=== PATIENT | female | born 1945 | race Caucasian/White ===

== ENCOUNTER 2017-01-10 10:42 | Day surgery (SDC) | payer MEDICARE, OTHER ==
[~2017-01-10] VITALS: Ht 167.6 cm; Wt 87.8 kg
[~2017-01-10 10:42] MED LIST: ASPI-973 PO; CeFAZolin Inj 2 GM in IV Premix 1 EACH IV ONE; Dexamethasone 4 mg/mL Inj IVPUSH PRN; EPHEDrine Sulfate 50 mg/mL Inj IVPUSH PRN; HYDROmorphone 1 mg/mL Inj IVPUSH PRN; LISI-567 PO; LOVA20TA PO; Labetalol 5 mg/mL 20 mL Inj IV PRN; Lactated Ringer's 1,000 ML IV SCH; Lactated Ringer's 500 ML IV PRN; METF500T4 PO; MetoCLOpramide 5 mg/mL 2 mL Inj IVPUSH PRN; Ondansetron 2 mg/mL 2 mL Inj IVPUSH PRN; Phenylephrine 10,000 mCg/mL Inj IVPUSH PRN; fentaNYL-PF 50 mCg/mL 2 mL Inj IVPUSH PRN; hydrALAZINE 20 mg/mL Inj IVPUSH PRN
[2017-01-10] MEDS ORDERED: Propofol 10,000 mCg/mL 20 mL Inj ONE (10:43)
[2017-01-10] MEDS ORDERED: Ketamine 10 mg/mL 20 mL Inj ONE (10:43)
[2017-01-10 11:02] VITALS: BP 139/61; PULSE 78; RESP 16; O2SAT 96
[2017-01-10] MEDS ORDERED: CeFAZolin Inj 2 gm / 50mL D5W IV ONE (11:06)
[2017-01-10] MEDS ORDERED: Lactated Ringer's 1,000 ML IV ONE (11:29)
--- NOTE | 2017-01-10 12:46 | PCM.HPANE ---
Patient Data Date of Service: Jan 10, 2017 Surgeon Admitting Provider: Attending Provider:Jb Thornotn MD Primary Care Physician:Olvin Raines MD Other Provider:Sue Amos Anesthesia Reason for Visit Right Index Finger Mass, Likely Ganglion Cyst Ht/WT & BMI Height (Feet): 5 Height (Inches): 6.00 Weight (Kilograms): 87.800 Body Mass Index 31.00 Allergies Coded Allergies: No Known Allergies (Unverified , 01/03/17) Past Anesthesia History Anesthesia History: Denies:: Abnormal Airway, Anesthesia Reactions, Difficult Intubation, Fam Anesthesia Reaction, Fam Malignant Hypertherm, Malignant Hyperthermia Diabetes History Hx Diabetes?: Yes (TYPE II) Type of Diabetes: Type II Glycemic Control: Oral Medication Current Bedside Blood Glucose: 127 MRSA MRSA: No Medications Blood Thinner: Aspirin Last Dose Blood Thinner: Jan 05, 2017 Hypertension Medication: Yes (Lisinopril) Home Meds Incl Beta Bertha: No Reported Medications Metformin 500 Mg [id number] Mg PO BID Ref 0 01/03/17 Lovastatin 20 Mg [id number] Mg PO HS PRN For HYPERtension #30 TABLET Ref 0 01/03/17 Lisinopril 20 Mg [id number] Mg PO DAILY 30 Days Ref 0 01/03/17 Aspirin 81 Mg [id number] Mg PO DAILY Ref 0 01/03/17 Discontinued Reported Medications [lidocaine viscus] No Conflict Check5 Ml QID 01/03/17 Fluticasone Propionate 50 Mcg/Actuation Harris.susp15.8 Ml NS DAILY 01/03/17 History History of ENT Problems?: No HEENT History: Positive for:: Hearing Problem Denies:: Abnormal Airway Difficult Intubation Dysphagia Sinus Problem TMJ Denture Type: Full- Upper Partial- Lower Teeth Condition: Within Normal Limits Hx of Heart Problems?: No Cardiovascular History: Positive for:: Hypertension Denies:: Abdominal Aortic Aneurism Atrial Fibrillation Cardiac Surgery Chest Pain Congestive Heart Failure Coronary Artery Disease Edema Heart Murmur Irregular Heartbeat Pacemaker Rheumatic Fever Valvular Heart Disease Hx of Respiratory Problem?: No Respiratory History: Denies:: Tuberculosis Use of C-PAP Machine Use of Inhalers / NEBS Hx Neurologic Problems?: No Neurological History: Denies:: Alzheimer's Disease CVA Dementia Dizziness Headaches Parkinson's Disease Seizures TIA Hx of GI Problems?: No Hx of Problems?: No Genitourinary History: Denies:: HX of Hemodialysis Kidney Stones Urinary Tract Infection HX of Peritoneal Dialysis: No Female Hx: Denies:: Problems with Breasts? Skin History: Denies:: History Skin Disorders? Pressure Ulcers Hx Musculoskeletal Problems?: Yes Musculoskeletal History: Positive for:: Back Injury (spinal stenosis ) Musculoskeletal Trauma (fx feet 2nd to stepping from porch) Denies:: Degenerative Joint Joint Replacement Osteoarthritis Rheumatoid Arthritis Systemic Lupus Hx of Psycho/Social Problems?: No Psycho Social History: Denies:: Anxiety Hx Depression Hx Surgeries?: Yes (R ankle, Hyst.) Other History: Positive for:: Hospitalization (foot surgery, ) Denies:: Cancer Thyroid Disease History Blood Transfusions: Positive for:: Accept Blood Products? Denies:: Blood Transfusions Hx Diabetes: Yes (TYPE II)Bedside Blood Glucose: 127 Hx Alcohol Use: NoHx Substance Use: No Stop/Bang Treated for Sleep Apnea?: No Do You Have a CPAP Machine?: No S-Snoring: Do You Snore Loudly: No T-Tired: feel tired, fatigued: No O-Obsered: Observed not breath: No P-Blood Pressure: treated: Yes B- Body Mass Index > 35 kg/m2: No A- Age over 50: Yes N- Neck Large Circumference: No G- Gender Male: No AGUSTO Total Score: 2 AGUSTO Risk Assessment: Low Risk, <3 Yes Risk Assessment Category Category 1A: Patient has history of documented sleep apnea, and HAS NOT received any narcotic, sedative or anesthesia administration during this stay. Category 1B: Patient has history of documented sleep apnea, and HAS received any narcotic , sedative or anesthesia administration during this stay Category 2: Patient has SUSPECTED Obstructive Sleep Apnea, and HAS received any narcotic , sedative or anesthesia administration during this stay. Category 3: Patient has SUSPECTED Obstructive Sleep Apnea and HAS NOT received narcotic, sedative or anesthesia administration during this stay. Category 4: Outpatient in Procedural Areas with known sleep apnea or who screen positive for High Risk via the STOP/BANG questionnaire. Exam Exam Vital Signs Vital Signs Date Time Temp Pulse Resp B/P Pulse Ox O2 Delivery O2 Flow Rate FiO2 01/10/17 11:02 36.7 78 16 139/61 96 Room Air General Appearance: Alert, Oriented X3, Cooperative, No Acute Distress HEENT/AIRWAY: MP 2 Lungs: Clear to Auscultation, Normal Air Movement Heart: Exam Unremarkable, Regular Rate/Rhythm, No Murmurs/Rubs/Gallops Meds/Labs/Diagnostics Admission Meds Current Medications Lactated Ringer's (Lr) 1,000 ml @ ud STK-MED ONCE IV Last administered on 01/10t 11:29; Start 01/10/17 at 11:29; Stop 01/10/17 at 11:30; Status DC Bedside Blood Glucose: 127 Plan Impression Patient chart reviewed, patient interviewed and anesthestic plan with risks, benefits, and alternatives discussed, and informed consent obtained. NPO per Anesth. Guidelines: Yes ASA Physical Status: ASA2 Mod Systemic Disease Anesthetic Plan: MAC Bene/Risks/Altern/Consents: Yes HP Complete Prior to Induction: Yes Ortega Alexander MD Jan 10, 2017 12:46
[2017-01-10] MEDS ORDERED: Bupivacaine 0.5% 50 mL Inj INFILTRATE ONE (12:58)
[2017-01-10 13:20] VITALS: BP 143/98; PULSE 79; RESP 16; O2SAT 96
[2017-01-10 13:23] VITALS: BP 129/67; PULSE 77; RESP 16; O2SAT 96
[2017-01-10] MEDS ORDERED: HYDROcodone-APAP 5-325 mg Tablet PO PRN (13:30)
--- NOTE | 2017-01-10 14:45 | PCM.ANEP1 ---
Post Anesthesia PACU Phase 1 Assessment Vital Signs Vital Signs Date Time Temp Pulse Resp B/P Pulse Ox O2 Delivery O2 Flow Rate FiO2 01/10/17 13:23 77 16 129/67 96 Room Air 01/10/17 13:20 36.2 79 16 143/98 96 Room Air 01/10/17 11:02 36.7 78 16 139/61 96 Room Air Anesthetic Administered: MAC Level of Alertness: Awake, talking Pain: No Nausea or Vomiting: No CV Function & Hydration Stable: Yes Airway Device: Oxygen Delivery: Room Air Lungs: Clear to Auscultation, Normal Air Movement PACU Phase 2 Assessment Complications: No Follow up Care: No Patient Instructions Provided: N/A Ortega Alexander MD Jan 10, 2017 14:45
--- NOTE | 2017-01-11 13:02 | OP ---
[address] [address] OPERATIVE REPORT PATIENT: BOUBACAR MAZARIEGOS : 1945 MR#: [id number] ADMIT: 01/10/2017 JOB ID: [id number] DATE OF SURGERY: 01/10/2017 PREOPERATIVE DIAGNOSIS(ES): Right index finger mass. POSTOPERATIVE DIAGNOSIS(ES): Right index finger mass. PROCEDURE: Excision of right index finger ganglion cyst. SURGEON: Jb Thornton MD LIFE GUARD: None. ANESTHESIA: MAC with local. COMPLICATIONS: None apparent. SPECIMEN: Right index finger ganglion cyst to Pathology. DRAINS: None. INDICATIONS FOR PROCEDURE: This is a 71-year-old female patient with a slowly enlarging mass that is tender on the index finger. At this point, excision of the mass is indicated for tissue diagnosis and for symptom relief. PROCEDURE AND FINDINGS: The patient was identified in the preoperative area. Surgical site was marked. The patient was then taken back to the operating room and placed supine on the operating table. Appropriate time-outs were taken. MAC was induced smoothly. The patient was then prepped and draped in the usual sterile manner. Local anesthesia consisting of 1% lidocaine and 0.25% Marcaine was infiltrated to the soft tissue surrounding this mass, which was located on the dorsum of the right index proximal phalanx. The patient's right index finger was then exsanguinated and a small finger tourniquet placed at the base of the finger. An oblique incision was then made directly over the mass. The incision was designed to be in line with possible future Rashida's incision should the patient ever need another surgery. The incision was made with a #15 blade and deepened down to the underlying subcutaneous tissue. It was noted that the patient has a fairly large 1.5 cm or so ganglion cyst in this area. Using a pair of tenotomy scissors, dissection was carried out around the cyst to elevate the cyst away from the surrounding soft tissue. The cyst was noted to be fairly well attached to the underlying extensor apparatus. It was then sharply lifted off of the extensor apparatus without damaging the apparatus. This was passed off to Pathology as a specimen. The area was then examined. I did not see any other small cystic mass or any other unusual lesion in this area. Tourniquet was released. Hemostasis was obtained with electrocautery. The incision was then reapproximated using 4-0 nylon simple running suture. The patient tolerated the procedure well. Needle count, sponge count, and instrument counts were correct at the end of the procedure. The patient was transported to recovery in stable condition.
--- NOTE | 2017-01-16 09:38 | PATH ---
SURGICAL PATHOLOGY Attending Physician:Jb Thornton CASE STATUS: Signed Out PATIENT NAME: BOUBACAR MAZARIEGOS PID: [id number] : 1945 DATE COLLECTED:01/10/2017 00:00 SPECIMEN: Mass, NOS CLINICAL HISTORY: RIGHT INDEX FINGER MASS 1). RIGHT INDEX FINGER FINAL DIAGNOSIS: Right Index Finger, Mass, Excision: - Ganglion cyst. ICD10: M67.4 GROSS DESCRIPTION: The specimen is received in one formalin filled container labeled with the patient's name, sublabeled "right index finger" and consists of a 0.6 x 0.6 x 0.5 CM pink hutchins partially translucent portion of tissue. The specimen is inked blue, bisected and entirely submitted in one cassette. 01/11/2017SC ICD-9 CODES: CPT CODES: 1: 85259 Electronically Signed Out Oni Pate MD [facility] Pathology [facility] [address], [place] [address] Technical component performed at [facility], [facility] [address], [address]
== END 2017-01-10 23:59 | disposition home or self-care (01) ==
LOC: SAS 10:42
PROVIDERS: ATTEND Plastic Surgery
DX: M67.441 Ganglion, right hand (principal); I10 Essential (primary) hypertension; E78.5 Hyperlipidemia, unspecified; E11.9 Type 2 diabetes mellitus without complications; Z79.82 Long term (current) use of aspirin; Z79.84 Long term (current) use of oral hypoglycemic drugs
CPT/HCPCS: 26160; J0690; J2704; J7120